=== PATIENT | male | born 1960 | race Native Hawaiian/Other Pacific Islander ===

== ENCOUNTER 2022-03-03 11:33 | Outpatient (CLI) | payer BC | END 2022-03-03 21:19 | disposition home or self-care (01) | LOC: RAD 11:33 | PROVIDERS: ATTEND Internal Medicine | DX: I10 Essential (primary) hypertension (principal) ==

== ENCOUNTER 2022-03-28 09:34 | Outpatient (CLI) | payer BC | END 2022-03-28 19:09 | disposition home or self-care (01) | LOC: RESP 09:34 | PROVIDERS: ATTEND Internal Medicine | DX: R06.02 Shortness of breath (principal) ==

== ENCOUNTER 2023-05-23 12:15 | Outpatient (CLI) | payer OTHER, BC ==
[2023-05-23 12:34] LABS: PLATELET COUNT 161 K/uL (142-355)
[2023-05-23 12:53] LABS: POTASSIUM 4.7 mmol/L (3.6-5.2)
== END 2023-05-23 19:52 | disposition home or self-care (01) ==
LOC: LAB 12:15
PROVIDERS: ATTEND Internal Medicine
DX: E11.9 Type 2 diabetes mellitus without complications (principal)
CPT/HCPCS: 80053; 80061; 81002; 83036; 84439; 84443; 85027